=== PATIENT | female | born 1980 | race African-American/Black ===

== ENCOUNTER 2018-03-30 10:23 | Emergency (ER) | payer OTHER ==
[~2018-03-30] VITALS: Ht 172.7 cm; Wt 86.2 kg
--- NOTE | 2018-03-30 11:18 | ED HEADACHE COMPLAINT ---
History of Present Illness General Chief Complaint: Headache Stated Complaint: NICHOLS X 4 DAYS Source: patient, family () Exam Limitations: no limitations Vital Signs & Intake/Output Vital Signs & Intake/Output Vital Signs Date Time Temp Pulse Resp B/P B/P Pulse O2 O2 Flow FiO2 Mean Ox Delivery Rate 03/30 1344 98.0 96 16 132/80 99 Room Air 03/30 1035 98.2 99 18 138/87 98 Room Air Allergies Coded Allergies: shellfish derived (Intermediate, HIVES 03/30/18) Reconcile Medications Fiorinal (Fiorinal 50-325-40 MG Capsule) 50 MG-325 MG-40 MG CAPSULE 1 TAB PO Q6H HEADACHE Ondansetron (Zofran Odt) 4 MG TAB.RAPDIS 1 TAB SL TID nausea Triage Note: PRESENTS TO ED FRO EVALUATION OF MIGRAINES SINCE SATURDAY NIGHT. REPORTS NAUSEA AND VOMITING. ALSO REPORTS PHOTOSENSITIVITY. HX OF THE SAME. TOOK OTC MEDS WITH NO RELIEVE. Triage Nurses Notes Reviewed? yes Onset: Abrupt Duration: continues in ED Timing: recent history Quality/Severity: severe, constant, sharp, stabbing, throbbing Severity Numbers: 10 Head Injury Location: global No Modifying Factors: none : No Patient currently breastfeeds: No HPI: 37-year-old female reports headache that began 4 days ago March 27. She reports the headache began in the morning when she got out of bed to go bring her son to school. She denies any trauma. She has had headaches like this in the past however they have never lasted this long. Headaches are usually relieved with Excedrin and Advil, however this headache she has had no relief with either of these. She reports having one episode of vomiting this morning and also pain with light and sound. She has a history of Lyme disease and sees a neurologist in [place] to which she cannot remember the name. She denies any chronic medical history besides the Lyme disease, she denies any allergies. (Luly Serrato) Past History Travel History Traveled to [place] past 21 day No Medical History Any Pertinent Medical History? see below for history Neurological: MIGRAINES EENT: NONE Cardiovascular: NONE Respiratory: NONE Gastrointestinal: NONE Hepatic: NONE Renal: NONE Musculoskeletal: NONE Psychiatric: NONE Endocrine: NONE Blood Disorders: NONE Cancer(s): NONE Other Medical Hx: Lyme disease, sees neurologist in [place] Surgical History Surgical History: tubal ligation, bunionectomy Psychosocial History Where do you live Home Who do you live with Spouse What is your primary language Korean Tobacco Use: Never used Family History Hx Contributory? No (Luly Serrato) Review of Systems Review of Systems Constitutional: Reports: see HPI. Eyes: Reports: see HPI. Ears, Nose, Throat, Mouth: Reports: no symptoms. Respiratory: Reports: no symptoms. Cardiovascular: Reports: no symptoms. Gastrointestinal/Abdominal: Reports: see HPI. Genitourinary: Reports: no symptoms. Musculoskeletal: Reports: no symptoms. Skin: Reports: no symptoms. Neurological/Psychological: Reports: see HPI. Hematologic/Endocrine: Reports: no symptoms. Endocrine: Reports: no symptoms. Immunologic/Allergic: Reports: no symptoms. All Other Systems: Reviewed and Negative (Luly Serrato) Physical Exam Physical Exam General Appearance: alert, awake, moderate distress Head: atraumatic, normal appearance Eyes: Bilateral: normal appearance, PERRL, EOMI, photophobia. Ears, Nose, Throat: normal pharynx, hearing grossly normal Neck: normal inspection, full range of motion Respiratory: normal breath sounds, chest non-tender, no respiratory distress Cardiovascular: regular rate/rhythm Gastrointestinal: soft, non-tender Back: normal inspection, normal range of motion Extremities: normal inspection, normal range of motion Psychiatric: awake, alert, oriented x 3 Cranial Nerves: normal hearing, normal speech, PERRL Coordination/Gait: normal finger to nose Motor/Sensory: no motor/sensory deficits Skin: intact, normal color, warm/dry Core Measures Sepsis Present: No Sepsis Focused Exam Completed? No (Luly Serrato) Progress Differential Diagnosis: cluster NICHOLS, migraine NICHOLS, sinusitis, subarach. Hem., tension NICHOLS, TMJ syndrome Plan of Care: Current Medications Sig/Juanita Start time Last Medication Dose Stop Time Status Admin Ketorolac 30 MG ONCE ONE 03/30 1130 UNVr Tromethamine 03/30 1131 (Toradol) Metoclopramide HCl 10 MG ONCE ONE 03/30 1130 UNVr (Reglan) 03/30 1131 Sodium Chloride 1,000 ML BOLUS ONE 03/30 1130 UNVr (Normal Saline 0.9%) 03/30 1229 (Luly Serrato) Departure Departure Disposition: HOME OR SELF CARE Condition: Stable Clinical Impression Primary Impression: Migraine Qualifiers: Migraine type: other Status migrainosus presence: with status migrainosus Referrals: Amish Hollingsworth MD (PCP/Family) Additional Instructions: Take Fioricet every 6 hours as needed for pain. Alternate with ibuprofen. Take Zofran as needed for nausea. Follow-up with neurologist this week. Return to the emergency department with worsening symptoms, or changes in headache. Departure Forms: Customer Survey General Discharge Information Prescriptions: Current Visit Scripts Ondansetron (Zofran Odt) 1 TAB SL TID #10 TAB Fiorinal (Fiorinal 50-325-40 MG Capsule) 1 TAB PO Q6H #20 TAB Comments 03-30-18 11:25 pm - pt given option PO vs IV meds, preferred IV. Ordered NS bolus , reglan, and toradol. 03-30-18 12:43 PM - PT REPORTED FEELING THE PAIN HAS DECREASED FROM 10+ TO A 5. FEELING LESS PAIN WITH LIGHT AND SOUND. 03-30-18 1:18 pm - pt feeling better, would like to go home 37-year-old female presented to the emergency department with a headache for 4 days without relief from Advil or Excedrin. After given Toradol she felt better and was stable for discharge. She will be discharged on Fioricet AND zOFRAN and will follow up with her neurologist this week. She is advised to come back to the emergency department with worsening symptoms, nausea/vomiting, worsening or changing headache. (Luly Serrato) PA/AVIONICS SYSTEMS TECHNICIAN Co-Sign Statement Statement: ED Attending supervision documentation- I saw and evaluated the patient. I have also reviewed all the pertinent lab results and diagnostic results. I agree with the findings and the plan of care as documented in the PA's/AVIONICS SYSTEMS TECHNICIAN's documentation. x I have reviewed the ED Record and agree with the PA's/AVIONICS SYSTEMS TECHNICIAN's documentation. [] Additions or exceptions (if any) to the PAs/AVIONICS SYSTEMS TECHNICIAN's note and plan are summarized below: [] (Siria CALI,Filemon) ED Attending Observation Initial Observation Note: I have seen and personally examined ELIZABETH CORMIER on 03/30/18 at 1125. I agree with the current emergency department documentation. The disposition (admission or discharge) is uncertain at this time, she needs a period of observation for the following reason(s): The ED Nurse caring for this patient has been personally informed as to what the patient is being observed for. (Luly Serrato)
[2018-03-30] MEDS ORDERED: ZOFRAN ODT4 M1 SL (13:24)
[2018-03-30] MEDS ORDERED: FIORINAL 50-321 EACH PO (13:24)
[2018-03-30 13:44] VITALS: BP 132/80
== END 2018-03-30 13:44 ==
LOC: ERH 10:23
DX: G43.909 Migraine, unspecified, not intractable, without status migrainosus (principal)
CPT/HCPCS: 96361; 96374; 96375; J1885; J2765